=== PATIENT | female | born 1990 | race Hispanic/Latino ===

== ENCOUNTER 2021-05-11 09:52 | Emergency (ER) | payer BC ==
[~2021-05-11] VITALS: Ht 154.9 cm; Wt 87.3 kg
[2021-05-11] MEDS ORDERED: KETOROLAC TROMETHAMINE 60 MG/2 ML VIAL IM STA (10:15)
[2021-05-11] MEDS ORDERED: ULTRAM50 MG PO (10:56)
[2021-05-11] MEDS ORDERED: KETOROLAC TROMETHAMINE 60 MG/2 ML VIAL ONE (11:00)
== END 2021-05-11 11:07 | disposition home or self-care (01) ==
LOC: FSED 10:15
DX: S33.5XXA Sprain of ligaments of lumbar spine, initial encounter (principal); X50.0XXA Overexertion from strenuous movement or load, initial encounter; Y92.008 Other place in unspecified non-institutional (private) residence as the place of occurrence of the external cause
CPT/HCPCS: 74176; 81003; 81025; 96372; 99283; J1885